=== PATIENT | male | born 1985 | race Caucasian/White ===

== ENCOUNTER 2023-12-12 23:20 | Emergency (ER) | payer OTHER ==
[2023-12-12 23:28] VITALS: BP 142/91; PULSE 105; RESP 18; TEMP 97.8
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
== END 2023-12-12 23:30 | disposition left against medical advice (07) ==
LOC: EC 23:20
DX: S09.90XA Unspecified injury of head, initial encounter (principal); Z88.0 Allergy status to penicillin; Z53.29 Procedure and treatment not carried out because of patient's decision for other reasons; V29.91XA Electric (assisted) bicycle rider (driver) (passenger) injured in unspecified traffic accident, initial encounter; Y92.410 Unspecified street and highway as the place of occurrence of the external cause
CPT/HCPCS: 99283

== ENCOUNTER 2023-12-25 13:49 | Emergency (ER) | payer OTHER ==
[2023-12-25 14:24] VITALS: TEMP 98.1
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
[2023-12-25 15:53] VITALS: BP 136/76; PULSE 86; RESP 18
== END 2023-12-25 15:53 | disposition home or self-care (01) ==
LOC: EC 13:49
DX: M25.532 Pain in left wrist (principal); M25.531 Pain in right wrist; Z88.0 Allergy status to penicillin
CPT/HCPCS: 99283